=== PATIENT | female | born 1965 | race Hispanic/Latino ===

== ENCOUNTER → 2019-06-20 | Day surgery (SDC) | payer OTHER ==
[2019-06-16 16:54] LABS: BASOPHILS % 0.6 % (0.0-1.0); EOSINOPHILS # (AUTO) 0.2 (0.0-0.4); EOSINOPHILS % 2.4 % (0.0-6.0); HEMATOCRIT 35.4 % (34.2-44.1); HEMOGLOBIN 11.3 g/dL (12.0-16.0); LYMPHOCYTES # (AUTO) 1.9 (1.0-3.2); MEAN CORPUSCULAR HEMOGLOBIN 29.7 pg (28-32); MEAN CORPUSCULAR HGB CONC 31.9 g/dL (31-35); MEAN CORPUSCULAR VOLUME 92.9 fL (81-99); MONOCYTES # (AUTO) 0.5 (0.2-0.8); MONOCYTES % 7.1 % (4.4-11.3); NEUTROPHILS # (AUTO) 4.1 (2.1-6.9); NEUTROPHILS % 61.7 % (38.7-80.0); PLATELET COUNT 194 x10e3/uL (140-360); RED BLOOD COUNT 3.81 x10e6/uL (3.6-5.1); RED CELL DISTRIBUTION WIDTH 13.6 % (11.7-14.4)
[~2019-06-20] MED LIST: ASPIR 8181 MG PO; BIOTIN5 MG PO; CALCIUM PO; FENTANYL CITRATE/PF 100MCG/2 ML INJ ONE; FISH OIL 1,0001 EAC2 PO; GLYCOPYRROLATE INJ 0.2 MG/ML VIAL ONE; LEVOTHYROXINE75 MCG PO; LIDOCAINE HCL 2% LOCAL INJ 5 ML SDV VIAL INJ ONE; LOSARTAN POTASS25 MG PO; MIDAZOLAM HCL 2 MG/2 ML VIAL ONE; MULTIVITAMINS1 EAC7 PO; PROPOFOL IV EMULSION 10 MG/ML 20 ML VIAL ONE; VITAMIN B122500 MCG PO
[2019-06-20 12:30] VITALS: BP 126/66
== END | disposition home or self-care (01) ==
LOC: OR 08:24
PROVIDERS: ATTEND Internal Medicine Gastroenterology
DX: K31.7 Polyp of stomach and duodenum (principal); K29.70 Gastritis, unspecified, without bleeding; K21.9 Gastro-esophageal reflux disease without esophagitis; K28.9 Gastrojejunal ulcer, unspecified as acute or chronic, without hemorrhage or perforation; K44.9 Diaphragmatic hernia without obstruction or gangrene; Z98.84 Bariatric surgery status; R00.1 Bradycardia, unspecified; I10 Essential (primary) hypertension; I25.10 Atherosclerotic heart disease of native coronary artery without angina pectoris; E66.01 Morbid (severe) obesity due to excess calories; E03.9 Hypothyroidism, unspecified; R73.03 Prediabetes; Z01.812 Encounter for preprocedural laboratory examination; Z79.82 Long term (current) use of aspirin; Z68.41 Body mass index [BMI] 40.0-44.9, adult; Z85.43 Personal history of malignant neoplasm of ovary; Z85.828 Personal history of other malignant neoplasm of skin; Z80.0 Family history of malignant neoplasm of digestive organs
CPT/HCPCS: 36415; 43251; 85025; J2001; J2250; J2704; J3010; 43239

== ENCOUNTER → 2019-09-19 | Day surgery (SDC) | payer OTHER ==
[2019-09-15 08:36] LABS: BASOPHILS # (AUTO) 0.1 (0.0-0.1); BASOPHILS % 1.1 % (0.0-1.0); EOSINOPHILS # (AUTO) 0.1 (0.0-0.4); EOSINOPHILS % 2.3 % (0.0-6.0); HEMATOCRIT 36.6 % (34.2-44.1); HEMOGLOBIN 11.6 g/dL (12.0-16.0); LYMPHOCYTES # (AUTO) 1.5 (1.0-3.2); LYMPHOCYTES % 29.1 % (18.0-39.1); MEAN CORPUSCULAR HEMOGLOBIN 29.3 pg (28-32); MEAN CORPUSCULAR HGB CONC 31.7 g/dL (31-35); MEAN CORPUSCULAR VOLUME 92.4 fL (81-99); MONOCYTES # (AUTO) 0.4 (0.2-0.8); MONOCYTES % 6.6 % (4.4-11.3); NEUTROPHILS # (AUTO) 3.2 (2.1-6.9); NEUTROPHILS % 60.5 % (38.7-80.0); PLATELET COUNT 182 x10e3/uL (140-360); RED BLOOD COUNT 3.96 x10e6/uL (3.6-5.1); RED CELL DISTRIBUTION WIDTH 14.1 % (11.7-14.4)
[~2019-09-19] MED LIST changes: -FENTANYL CITRATE/PF 100MCG/2 ML INJ ONE; -GLYCOPYRROLATE INJ 0.2 MG/ML VIAL ONE
--- OUTSIDE RECORDS SUMMARY | 2019-09-19 08:02 | XMS REPORT | Continuity of Care Document ---
Author Author [employer], ELLA Berrios [facility] [place] Address Unknown Phone Unavailable Care Team Providers Care Lane Attendant Name Role Phone [facility] Information Exchange Unavailable Un available Problems Problem Status Onset Date Classification Date Reported Comments Source MORBID OBESITY Active 06/30/2017 [facility] M65.8=OTHER SYNOVITIS AND TENOSYNOVITIS, Active 10/28/2015 [facility] Medications Medication Details Route Status Patient Instructions Ordering Provider Order Date Source Ketorolac 4 days MEDICA TION WASTE Product Size: 30 mg Product Wasted: _0__ mg Inactive 09/21/2017 [facility] Ondansetron 4 mg, Route: IVP, Q6H, Dosing Weight 115.455, kg, PRN Nausea & Vomiting, Start date: 09/21/17 13:17:00 CDT, Duration: 30 day, Stop date: 10/21/17 13:16:00 CDT Inactive 09/21/2017 [facility] Promethazine 12.5 mg, Route: I M, Q4H, Dosing Weight 115.455, kg, PRN Nausea & Vomiting, Start date: 09/21/17 13:17:00 CDT, Duration: 30 day, Stop date: 10/21/17 13:16:00 CDT Inactive 09/21/2017 [facility] D5LR + KCL 20mEq/L 1000ml (Premix) 1,000 mL Notes: PREMIX IV - Do Not Alter WASTE: F/P - Sink; E - Municipal Trash Bin Inactive 09/21/2017 [facility] Dexamethasone Notes: Concentra tion: 4mg/ml Inactive 09/21/2017 [facility] Acetaminophen 21.7 MG/ML / Hydrocodone B itartrate 0.5 MG/ML Oral Solution Notes: Do not exceed 4gm/day of acetamin ophen. (Same as: [place] 325/7.5) Inactive 09/21/2017 [facility] heparin Notes: porcine heparin Inactive 09/21/2017 [facility] Aspirin 81 MG Enteric Coated Tablet 81 mg = 1 tab, PO, Daily Inactive 09/20/2017 [facility] levothyroxine 75 mcg (0.075 mg) oral tablet 75 microgram = 1 tab, PO, Daily Active 09/20/2017 [facility] losartan 50 mg oral tablet 50 mg = 1 tab, PO, Daily Active 09/20/2017 [facility] Cefoxitin Notes: (Same As: Mef oxin) MEDICATION WASTE Product Size: 2000 mg Product Wasted: ___ mg Inactive 09/20/2017 [facility] Hydromorphone Notes: (Same as: Dilaudid) conc = 0.5 mg/ml Hydromorphone [employer] Dose: ;Delay: ;Basal: No Longer Active 09/20/2017 [facility] Naloxone Notes: Same as Narcan No Longer Active 09/20/2017 [facility] Benadryl Notes: (Same as: [employer] dryl) No Longer Active 09/20/2017 [facility] D5W 1/2NS + KCL 20mEq/L 1000ml (Premix) 1,000 mL Notes: PREMIX IV - Do Not Alter WASTE: F/P - Sink; E - Municipal Trash Bin No Longer Active 09/20/2017 [facility] Ondansetron Notes: (Same as: Chitra palafox) MEDICATION WASTE Product Size: 4 mg Product Wasted: ___ mg No Longer Active 09/20/2017 [facility] Promethazine Notes: Do not giv e IV push. (Same as: Phenergan) No Longer Active 09/20/2017 [facility] Acetaminophen 21.7 MG/ML / Hydrocodone B itartrate 0.5 MG/ML Oral Solution Notes: Do not exceed 4gm/day of acetamin ophen. (Same as: [place] 325/7.5) No Longer Active 09/20/2017 [facility] neostigmine (ANES) Route: IV, Drug form: INJ, ONCE, Stop date: 09/20/17 9:47:00 CDT Inactive 09/20/2017 [facility] ondansetron (ANES) Route: IV, Drug form: INJ, ONCE, Stop date: 09/20/17 9:45:00 CDT Inactive 09/20/2017 [facility] Naloxone Notes: Same as Narcan Inactive 09/20/2017 [facility] Ondansetron Notes: (Same as: Chitra palafox) MEDICATION WASTE Product Size: 4 mg Product Wasted: ___ mg Inactive 09/20/2017 [facility] Flumazenil Notes: (Same as: Ro mazicon) Inactive 09/20/2017 [facility] Fentanyl Notes: (Same as: Subl imaze) Preservative free. Inactive 09/20/2017 [facility] Labetalol 10 mg, 2 mL, Route: IVP, Drug form: INJ, Q5Min, Dosing Weight 117.909, kg, PRN Elevated BP, Start date: 09/20/17 9:06:00 CDT, Duration: 5 doses or times, Stop date: 09/21/17 0:00:00 CDT Inactive 09/20/2017 [facility] Hydralazine Notes: (Same as: A presoline) Push over 5 minutes Inactive 09/20/2017 [facility] dexmedetomidine (ANES) + Sodium Chloride 0.9% IV (ANES) 98 mL Route: IV, Drug form: INJ, ONCE, Stop da te: 09/20/17 9:00:00 CDT Inactive 09/20/2017 [facility] ketAMINE (ANES) Route: IV, Rory g form: INJ, ONCE, Stop date: 09/20/17 8:55:00 CDT Inactive 09/20/2017 [facility] acetaminophen (ANES) 10 mg Rou te: IV, Drug form: INJ, Start date: 09/20/17 8:45:00 CDT, Stop date: 09/20/17 9:45:00 CDT Inactive 09/20/2017 [facility] metoclopramide (ANES) Route: I V, Drug form: INJ, ONCE, Stop date: 09/20/17 8:35:00 CDT Inactive 09/20/2017 [facility] famotidine (ANES) Route: IV, D rug form: INJ, ONCE, Stop date: 09/20/17 8:35:00 CDT Inactive 09/20/2017 [facility] cefOXitin (ANES) Route: IV, ug form: INJ, ONCE, Stop date: 09/20/17 8:35:00 CDT Inactive 09/20/2017 [facility] nt glycopyrrolate (ANES) Route: I V, Drug form: INJ, ONCE, Stop date: 09/20/17 8:30:00 CDT Inactive 09/20/2017 [facility] ePHEDrine (ANES) Route: IV, ug form: INJ, ONCE, Stop date: 09/20/17 8:30:00 CDT Inactive 09/20/2017 [facility] phenylephrine (ANES) Route: IV , Drug form: INJ, ONCE, Stop date: 09/20/17 8:30:00 CDT Inactive 09/20/2017 [facility] dexamethasone (ANES) Route: IV , Drug form: INJ, ONCE, Stop date: 09/20/17 8:30:00 CDT Inactive 09/20/2017 [facility] midazolam (ANES) Route: IV, ug form: SOLN, ONCE, Stop date: 09/20/17 8:25:00 CDT Inactive 09/20/2017 [facility] lidocaine (ANES) Route: IV, ug form: INJ, ONCE, Stop date: 09/20/17 8:25:00 CDT Inactive 09/20/2017 [facility] propofol (ANES) Route: IV, Rory g form: INJ, ONCE, Stop date: 09/20/17 8:25:00 CDT Inactive 09/20/2017 [facility] rocuronium (ANES) Route: IV, D rug form: INJ, ONCE, Stop date: 09/20/17 8:25:00 CDT Inactive 09/20/2017 [facility] fentaNYL (ANES) Route: IV, Rory g form: INJ, ONCE, Stop date: 09/20/17 8:25:00 CDT Inactive 09/20/2017 [facility] ropivacaine 0.2% 540 mg + Q-Pump 1 ea Notes: Preservative free. (Same as: Naropin) No Longer Active 09/20/2017 [facility] propofol (ANES) 10 mg Route: I V, Drug form: INJ, Start date: 09/20/17 7:46:00 CDT, Stop date: 09/20/17 8:46:00 CDT Inactive 09/20/2017 [facility] Sodium Chloride 0.9% IV (ANES) 98 mL + d exmedetomidine (ANES) 200 microgram Route: IV, Drug form: INJ, Start date: 0 09/20/17 7:46:00 CDT, Stop date: 09/20/17 8:46:00 CDT Inactive 09/20/2017 [facility] Lactated Ringers Injection IV (ANES) 1000 mL Route: IV, Total Volume: 1,000, Start date: 09/20/17 7:33:00 CDT, Stop date: 09/20/17 8:33:00 CDT Inactive 09/20/2017 [facility] CeleBREX Notes: NSAID. Please check indication. Not for seizure. (Same As: CeleBREX) Inactive 09/20/2017 [facility] Emend Notes: Same as: Emend re stricted to the Hematology/Oncology service for high and moderate emetogenic regimen according to ASCO Guidelines Passthrough Only for Chemotherapy-Induced nausea & vomitin g Inactive 09/20/2017 [facility] Neurontin Notes: (Same as: Lauren rontin) Inactive 09/20/2017 [facility] Ofirmev Notes: Infuse over 15 minutes Do not exceed 4gm/day of acetaminophen MEDICATION WASTE Product Size: 1000 mg Product Wasted: ___ mg No Longer Active 09/20/2017 [facility] Mefoxin + sterile water 20 mL Notes: (Same As: Mefoxin) MEDICATION WASTE Product Size: 2000 mg Product Wasted: ___ mg No Longer Active 09/20/2017 [facility] scopolamine Notes: Change patc h every 72 hours (Same as: Transderm-Scop) No Longer Active 09/20/2017 [facility] heparin Notes: porcine heparin No Longer Active 09/20/2017 [facility] remove patch Notes: Remove old patch before application of new patch. No Longer Active 09/20/2017 [facility] Vitamin D3 1200 IU, PO, Daily Active 09/17/2017 [facility] Aspirin 81 mg, PO, Daily No Longer Active 09/17/2017 [facility] Fish Oil 1,200 mg, PO, Daily Active 09/17/2017 [facility] Thyroxine 75 microgram, PO, Da bola No Longer Active 09/17/2017 [facility] Losartan 50 mg, PO, BID No Longer Active 09/17/2017 [facility] Allergies, Adverse Reactions, Alerts No Known Medication Allergies Immunizations No Data Provided for This Section Results Order Name Results Value Reference Range Date Interpretation Comments Source CHEM PANEL Magnesium Lvl 2.3 1.8 - 2.4 09/21/2017 [facility] CHEM PANEL Phosphorus 2.5 2.5 - 4.5 09/21/2017 [facility] CHEM PANEL eGFR 115 09/21/2017 Result Comment: The eGFR is calculated using the CKD-EPI formula. In most young, healthy individuals the eGFR will be >90 mL/min/1.73m2. The eGFR declines with age. An eGFR of 60-89 may be normal in some populations, particularly the elderly, for whom the CKD-EPI formula has not been extensively validated. Use of the eGFR is not recommended in the following populations:

Individuals with unstable creatinine concentrations, including patients and those with serious co-morbid conditions.

Patients with extremes in muscle mass or diet.

The data above are obtained from the National Kidney Disease Education Program (NKDEP) which additionally recommends that when the eGFR is used in patients with extremes of body mass index for purposes of drug dosing, the eGFR should be multiplied by the estimated BMI. [facility] CHEM PANEL CO2 25 24 - 32 09/21/2017 [facility] CHEM PANEL Sodium Lvl 138 135 - 145 09/21/2017 [facility] CHEM PANEL Creatinine Lvl 0.48 0.50 - 1.40 09/21/2017 [facility] CHEM PANEL Calcium Lvl 8.6 8.5 - 10.5 09/21/2017 [facility] CHEM PANEL Chloride Lvl 104 95 - 109 09/21/2017 [facility] CHEM PANEL Potassium Lvl 4.1 3.5 - 5.1 09/21/2017 [facility] CHEM PANEL BUN 9 7 - 22 09/21/2017 [facility] CHEM PANEL Glucose Lvl 125 70 - 99 09/21/2017 [facility] CHEM PANEL AGAP 13.1 10.0 - 20.0 09/21/2017 [facility] HEMATOLOGY Segs 82.8 45.0 - 75.0 09/21/2017 [facility] HEMATOLOGY Monocytes # 0.7 0.0 - 0.8 09/21/2017 [facility] HEMATOLOGY Segs-Bands # 8.8 1.5 - 8.1 09/21/2017 [facility] HEMATOLOGY Lymphocytes # 1.1 1.0 - 5.5 09/21/2017 [facility] HEMATOLOGY Basophils 0.1 0.0 - 1.0 09/21/2017 [facility] HEMATOLOGY Eosinophils 0.1 0.0 - 4.0 09/21/2017 [facility] HEMATOLOGY Monocytes 6.4 2.0 - 12.0 09/21/2017 [facility] HEMATOLOGY Lymphocytes 10.6 20.0 - 40.0 09/21/2017 [facility] HEMATOLOGY INR 1.13 0.85 - 1.17 09/21/2017 [facility] HEMATOLOGY PT 14.5 12.0 - 14.7 09/21/2017 [facility] HEMATOLOGY MPV 9.9 7.4 - 10.4 09/21/2017 [facility] HEMATOLOGY Platelet 185 133 - 450 09/21/2017 [facility] HEMATOLOGY RDW 14.9 11.5 - 14.5 09/21/2017 [facility] HEMATOLOGY MCH 30.3 27.0 - 31.0 09/21/2017 [facility] HEMATOLOGY MCHC 34.2 32.0 - 36.0 09/21/2017 [facility] HEMATOLOGY Hct 33.3 36.0 - 48.0 09/21/2017 [facility] HEMATOLOGY MCV 88.4 80.0 - 98.0 09/21/2017 [facility] HEMATOLOGY Hgb 11.4 12.0 - 16.0 09/21/2017 [facility] HEMATOLOGY RBC 3.77 4.20 - 5.40 09/21/2017 [facility] HEMATOLOGY WBC 10.7 3.7 - 10.4 09/21/2017 [facility] HEMATOLOGY PTT 30.7 22.9 - 35.8 09/21/2017 [facility] BLOOD BANK RESULTS Antibody Scrn Negative (09/20/17 6:39 AM) 09/20/2017 [facility] BLOOD BANK RESULTS ABO/Rh O POS 09/20/2017 [facility] URINE AND STOOL UA Blood Negative (09/20/17 6:19 AM) Negative 09/20/2017 [facility] URINE AND STOOL UA Nitrite Negative (09/20/17 6:19 AM) Negative 09/20/2017 [facility] URINE AND STOOL UA Urobilinogen 2.0 0.1 - 1.0 09/20/2017 [facility] URINE AND STOOL UA Sq Epi Few /LPF Few /LPF 09/20/2017 [facility] URINE AND STOOL UA Leuk Est Negative (09/20/17 6:19 AM) Negative 09/20/2017 [facility] URINE AND STOOL UA Hyal Cast 1 0 - 2 09/20/2017 [facility] URINE AND STOOL UA Mucus Few /LPF None Seen /LPF 09/20/2017 [facility] URINE AND STOOL UA Bacteria Occasional /HPF None Seen /HPF 09/20/2017 [facility] URINE AND STOOL UA WBC 1 0 - 5 09/20/2017 [facility] URINE AND STOOL UA Color Yellow *NA* (09/20/17 6:19 AM) Yellow 09/20/2017 [facility] URINE AND STOOL UA Turbidity Clear (09/20/17 6:19 AM) Clear 09/20/2017 [facility] URINE AND STOOL UA Spec Grav 1.013 <=1.030 09/20/2017 [facility] URINE AND STOOL UA pH 5.5 5.0 - 8.0 09/20/2017 [facility] URINE AND STOOL UA Protein Negative mg/dL Negative mg/dL 09/20/2017 [facility] URINE AND STOOL UA Glucose Negative mg/dL Negative mg/dL 09/20/2017 [facility] URINE AND STOOL UA Ketones 60 mg/dL Negative mg/dL 09/20/2017 [facility] URINE AND STOOL UA Bili Negative *NA* (09/20/17 6:19 AM) Negative 09/20/2017 [facility] HEMATOLOGY PTT 33.0 22.9 - 35.8 09/17/2017 [facility] HEMATOLOGY INR 1.14 0.85 - 1.17 09/17/2017 [facility] HEMATOLOGY PT 14.6 12.0 - 14.7 09/17/2017 [facility] URINE AND STOOL UA Renal Epi RARE <=0 09/17/2017 [facility] URINE AND STOOL UA Urobilinogen <=1.0 mg/dL 0.1 - 1.0 09/17/2017 [facility] URINE AND STOOL UA Bili Negative *NA* (09/17/17 8:45 AM) Negative 09/17/2017 [facility] URINE AND STOOL UA RBC 1 0 - 2 09/17/2017 [facility] URINE AND STOOL UA Sq Epi Moderate /LPF Few /LPF 09/17/2017 [facility] URINE AND STOOL UA Leuk Est Negative (09/17/17 8:45 AM) Negative 09/17/2017 [facility] URINE AND STOOL UA WBC 4 0 - 5 09/17/2017 [facility] URINE AND STOOL UA Mucus Few /LPF None Seen /LPF 09/17/2017 [facility] URINE AND STOOL UA Bacteria Many /HPF None Seen /HPF 09/17/2017 [facility] URINE AND STOOL UA Hyal Cast 3 0 - 2 09/17/2017 [facility] URINE AND STOOL UA Blood Negative (09/17/17 8:45 AM) Negative 09/17/2017 [facility] URINE AND STOOL UA Nitrite Positive *ABN* (09/17/17 8:45 AM) Negative 09/17/2017 [facility] URINE AND STOOL UA Ketones 80 mg/dL Negative mg/dL 09/17/2017 [facility] URINE AND STOOL UA Color Yellow *NA* (09/17/17 8:45 AM) Yellow 09/17/2017 [facility] URINE AND STOOL UA Turbidity Slight *ABN* (09/17/17 8:45 AM) Clear 09/17/2017 [facility] URINE AND STOOL UA Glucose Negative mg/dL Negative mg/dL 09/17/2017 [facility] URINE AND STOOL UA Protein 10 mg/dL Negative mg/dL 09/17/2017 [facility] URINE AND STOOL UA Spec Grav 1.015 <=1.030 09/17/2017 [facility] URINE AND STOOL UA pH 5.5 5.0 - 8.0 09/17/2017 [facility] Pathology Reports No Data Provided for This Section Diagnostic Reports Report Value Date Source Ankle wo contrast MRI MRI RIGH T ANKLE WITHOUT CONTRAST HISTORY: Other synovitis and tenosynovitis right ankle and foot, 50-year-old female reports right ankle and foot pain, mechanical symptoms, and stiffness for approximately one month which may be related to twisting injury of the foot, painful range of motion COMPARISON: None available. FINDINGS: Anterior talofibular ligament, calcaneofibular ligament, and posterior talofibular ligament are intact. Medial deltoid ligament complex is intact. The anterior and posterior distal tibiofibular syndesmotic ligaments are intact. Relatively small degenerative subcortical cyst with associated sclerosis in the medial talar dome posteriorly measures 7 x 6 x 4 mm. There is moderate reactive arthropathic marrow edema in the medial tibial plafond and base of the medial malleolus adjacently. Mild excess fluid in the common peroneal tendon sheath compatible with mild tenosynovitis. Moderate focal tendinopathy of the peroneus brevis tendon at the lateral malleolus. Mild posterior tibial tenosynovitis in the tarsal tunnel of the medial hindfoot without posterior tibial tendinopathy or tendon tear. Mild abnormal signal in the distal Achilles tendon without tendon thickening compatible with mild Achilles tendinopathy. No Achilles tendon tear. Mild/moderate degenerative arthritic changes are seen at the tarsometatarsal articulations diffusely. Moderate degenerative arthritic change is noted at the dorsal aspect of the naviculocuneiform articulations. Multiloculated soft tissue ganglion cyst along the lateral aspect of the neck of the talus measures 5 x 11 x 12 mm. Superficial soft tissue edema/inflammation at the medial and lateral malleolus, greater laterally. No fracture or aggressive osseous lesion. No osseous malalignment. No ankle or subtalar joint effusion. Normal plantar fascia. IMPRESSION: 1. A 7 mm degenerative subarticular cys t in the medial talar dome posteriorly with moderate associated reactive arthropathic marrow edema in the adjacent medial tibial plafond and base of the medial malleolus. 2. Mild common peroneal tenosynovitis wi th focal tendinopathy of the peroneal brevis tendon at the lateral malleolus. 3. Mild posterior tibial tenosynovitis i n the tarsal tunnel without tendinopathy or tendon tear. 4. Mild distal Achilles tendinopathy. 5. 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 6. Multiloculated soft tissue ganglion c yst along the lateral aspect of the neck of the talus. 7. Superficial soft tissue edema/inflamm ation at the medial and lateral malleolus, greater laterally. SL: [id number] 10/29/2015 [facility] Consultation Notes No Data Provided for This Section Discharge Summaries No Data Provided for This Section History and Physicals No Data Provided for This Section Vital Signs Vital Sign Value Date Comments Source Respitory Rate 18 09/21/2017 [facility] Systolic (mm Hg) 112 09/21/2017 [facility] Diastolic (mm Hg) 71 09/21/2017 [facility] Heart Rate 56 09/21/2017 [facility] Temperature Oral (F) 98.5 F 09/21/2017 [facility] Heart Rate 62 09/21/2017 [facility] Respitory Rate 18 09/21/2017 [facility] Temperature Oral (F) 98.1 F 09/21/2017 [facility] Systolic (mm Hg) 118 09/21/2017 [facility] Diastolic (mm Hg) 71 09/21/2017 [facility] Temperature Oral (F) 98.4 F 09/21/2017 [facility] Systolic (mm Hg) 130 09/21/2017 [facility] Diastolic (mm Hg) 84 09/21/2017 [facility] Respitory Rate 18 09/21/2017 [facility] Heart Rate 68 09/21/2017 [facility] BMI Calculated 57.06 09/20/2017 [facility] Height 142.24 cm 09/20/2017 [facility] Weight 115.455 09/20/2017 [facility] Weight 117.909 09/20/2017 [facility] BMI Calculated 58.28 09/20/2017 [facility] Height 142.24 cm 09/17/2017 [facility] Encounters Location Location Details Encounter Type Encounter Number Reason For Visit Attending Provider ADM Date DC Date Status Source [facility] Outpatient [id number] Non Physician 10/29/2015 10/30/2015 [facility] Inpatient [id number] Pierre CabezasGibran 09/20/2017 09/21/2017 [facility] Procedures Procedure Code Date Perfomer Comments Source Esophagogastroduodenoscopy [id number] 09/20/2017 [facility] Hernia repair<sup>1</sup> 5046 [id number] 09/20/2017 ventral hernia repair [facility] Laparoscopic sleeve gastrectomy [id number] 09/20/2017 [facility] Appendectomy [id number] [facility] section [id number] [facility] Cholecystectomy [id number] [facility] Hernia repair<sup>2</sup> 5046 5008 hiatal her rosana repair [facility] ABIGAIL - Total abdominal hysterectomy [id number] [facility] Assessment and Plan Assessment and Plan Date Source Extracted from:Title: surgery Author: Pierre Leary MD Date: 09/21/17 Impression and Plan Doing fine. Discharge home with f/u in 2 weeks. 09/21/2017 [facility] Plan of Care No Data Provided for This Section Social History Social History Date Source Social History TypeResponse Alcohol Never Smoking Status Never smoker; Exposure to Tobacco Smoke None; Cigarette Smoking Last 365 Days No; Reg Smoking Cessation Counseling No entered on: 09/20/17 09/20/2017 [facility] No data available for this section 10/30/2015 [facility] Family History No Data Provided for This Section Advance Directives No Data Provided for This Section Functional Status No Data Provided for This Section
--- OUTSIDE RECORDS SUMMARY | 2019-09-19 08:02 | XMS REPORT | Summary of Care ---
Author Author [facility] Organization [facility] Address Unknown Phone Unavailable Encounter NIKI Morel(NICHOLE) [id number] Date(s): 09/20/17 - 09/21/17 [facility] [address] [employer] provided by [employer] [place] [address]- Discharge Disposition: Home or Self Care Attending Physician: Pierre Leary MD Admitting Physician: Pierre Leary MD Referring Physician: Pierre Leary MD Vital Signs 1 2 3 Most recent to oldest [Reference Range]: 142.24 cm (09/20/17 12:23 PM) 142.24 cm (09/17/17 3:00 PM) Height 98.5 DegF (09/21/17 6:03 PM) 98.1 DegF (09/21/17 12:06 PM) 98.4 DegF (09/21/17 8:00 AM) Temperature Oral [96.4-99.1 DegF] 112/71 mmHg (09/21/17 6:03 PM) 118/71 mmHg (09/21/17 12:06 PM) 130/84 mmHg (09/21/17 8:00 AM) Blood Pressure [90-140/60-90 mmHg] 18 BRMIN (09/21/17 6:03 PM) 18 BRMIN (09/21/17 12:06 PM) 18 BRMIN (09/21/17 8:00 AM) Respiratory Rate [14-20 BRMIN] 56 bpm *LOW* (09/21/17 6:03 PM) 62 bpm (09/21/17 12:06 PM) 68 bpm (09/21/17 8:00 AM) Peripheral Pulse Rate [60-100 bpm] 115.455 kg (09/20/17 12:23 PM) 117.909 kg (09/20/17 6:02 AM) Weight 57.06 m2 (09/20/17 12:23 PM) 58.28 m2 (09/20/17 6:02 AM) Body Mass Index Problem List No data available for this section Allergies, Adverse Reactions, Alerts Substance Reaction Severity Status NKDA Active Medications acetaminophen (ANES) 10 mg Route: IV, Drug form: INJ, Start date: 09/20/17 8:45:00 CDT, Stop date: 09/20/17 9:45:00 CDT Start Date: 09/20/17 Stop Date: 09/20/17 Status: Completed acetaminophen-hydrocodone 325 mg-7.5 mg/15 mL oral solution 15 mL, Route: PO, Drug Form: SOLN, Dosing Weight 117.909, kg, Q4H, PRN Pain Scor e 4-6, Start date: 09/20/17 10:03:00 CDT, Duration: 30 day, Stop date: 10/20/17 10:02:00 CDT Notes: Do not exceed 4gm/day of acetaminophen. (Same as: [place] 325/7.5) Start Date: 09/20/17 Stop Date: 09/21/17 Status: Deleted acetaminophen-hydrocodone 325 mg-7.5 mg/15 mL oral solution 15 mL, Route: PO, Drug Form: SOLN, Dosing Weight 115.455, kg, Q6H, PRN Pain Scor e 4-6, Start date: 09/21/17 13:17:00 CDT, Duration: 30 day, Stop date: 10/21/17 13:16:00 CDT Notes: Do not exceed 4gm/day of acetaminophen. (Same as: [place] 325/7.5) Start Date: 09/21/17 Stop Date: 09/21/17 Status: Discontinued ANES fentaNYL 25 microgram, 0.5 mL, Route: IVP, Drug form: INJ, Q5Min, Dosing Weight 117.909, kg, PRN Pain Score 4-6, Priority: Routine, Start date: 09/20/17 9:06:00 CDT, Dur ation: 4 doses or times, Stop date: 09/21/17 0:00:00 CDT Notes: (Same as: Sublimaze) Preservative free. Start Date: 09/20/17 Stop Date: 09/20/17 Status: Discontinued ANES flumazenil 0.2 mg, 2 mL, Route: IVP, Drug form: INJ, PRN, Dosing Weight 117.909, kg, PRN Be nzodiazepine Reversal, Initial dose, Start date: 09/20/17 9:06:00 CDT, Duration: 30 day, Stop date: 10/20/17 9:05:00 CDT Notes: (Same as: Romazicon) Start Date: 09/20/17 Stop Date: 09/20/17 Status: Discontinued ANES hydrALAZINE 10 mg, 0.5 mL, Route: IVP, Drug form: INJ, Q20Min, Dosing Weight 117.909, kg, WV N Elevated BP, Start date: 09/20/17 9:06:00 CDT, Duration: 2 doses or times, Sto p date: 09/21/17 0:00:00 CDT Notes: (Same as: Apresoline)Push over 5 minutes Start Date: 09/20/17 Stop Date: 09/20/17 Status: Discontinued ANES labetalol 10 mg, 2 mL, Route: IVP, Drug form: INJ, Q5Min, Dosing Weight 117.909, kg, PRN E levated BP, Start date: 09/20/17 9:06:00 CDT, Duration: 5 doses or times, Stop d ate: 09/21/17 0:00:00 CDT Start Date: 09/20/17 Stop Date: 09/20/17 Status: Discontinued ANES naloxone 0.4 mg, 1 mL, Route: IVP, Drug form: INJ, Q2MIN, Dosing Weight 117.909, kg, PRN Narcotic Reversal, Start date: 09/20/17 9:06:00 CDT, Duration: 8 doses or times, Stop date: 09/21/17 0:00:00 CDT Notes: Same as Narcan Start Date: 09/20/17 Stop Date: 09/20/17 Status: Discontinued ANES ondansetron 4 mg, 2 mL, Route: IVP, Drug form: INJ, ONCE, Dosing Weight 117.909, kg, PRN Wolf sea & Vomiting, Start date: 09/20/17 9:06:00 CDT Notes: (Same as: Zofran) MEDICATION WASTE Product Size: 4 mgProduct Was bibi: ___ mg Start Date: 09/20/17 Stop Date: 09/20/17 Status: Discontinued aspirin 81 mg, PO, Daily Start Date: 09/17/17 Stop Date: 09/20/17 Status: Completed aspirin 81 mg tablet, enteric coated 81 mg = 1 tab, PO, Daily Start Date: 09/20/17 Stop Date: 09/20/17 Status: Completed aspirin 81 mg tablet, enteric coated 81 mg = 1 tab, PO, Daily Start Date: 09/20/17 Status: Ordered Benadryl 25 mg, 0.5 mL, Route: IV, Drug form: INJ, QID, Dosing Weight 117.909, kg, PRN as needed for itching, Start date: 09/20/17 10:03:00 CDT, Duration: 30 day, Stop d ate: 10/20/17 10:02:00 CDT Notes: (Same as: Benadryl) Start Date: 09/20/17 Stop Date: 09/21/17 Status: Discontinued cefOXitin (ANES) Route: IV, Drug form: INJ, ONCE, Stop date: 09/20/17 8:35:00 CDT Start Date: 09/20/17 Stop Date: 09/20/17 Status: Completed cefOXitin (SCIP) 2 gm, Route: IVPB, Drug form: INJ, Q6H, Dosing Weight 117.909, kg, Start date: 0 09/20/17 12:00:00 CDT, Duration: 1 doses or times, Stop date: 09/20/17 12:00:00 C DT, ABX Indication: Surgical Prophylaxis Notes: (Same As: Mefoxin) MEDICATION WASTE Product Size: 2000 mgProduct Wasted: ___ mg Start Date: 09/20/17 Stop Date: 09/20/17 Status: Completed CeleBREX 400 mg, 2 cap, Route: PO, Drug form: CAP, PRE OP, Start date: 09/20/17 7:00:00 C DT, Duration: 1 day, Stop date: 09/21/17 6:59:00 CDT Notes: NSAID. Please check indication. Not for seizure. (Same As: CeleBREX) Start Date: 09/20/17 Stop Date: 09/20/17 Status: Completed D5LR + KCL 20mEq/L 1000ml (Premix) 1,000 mL 1,000 mL, Rate: 80 ml/hr, Infuse over: 12.5 hr, Route: IV, Dosing Weight 115.455 kg, Total Volume: 1,000, Start date: 09/21/17 13:17:00 CDT, Duration: 30 day, S top date: 10/21/17 13:16:00 CDT, 2.2, m2 Notes: PREMIX IV - Do Not AlterWASTE: F/P - Sink; E - Municipal Trash Bin Start Date: 09/21/17 Stop Date: 09/21/17 Status: Discontinued D5W 1/2NS + KCL 20mEq/L 1000ml (Premix) 1,000 mL 1,000 mL, Rate: 125 ml/hr, Infuse over: 8 hr, Route: IV, Dosing Weight 117.909 k g, Total Volume: 1,000, Start date: 09/20/17 10:03:00 CDT, Duration: 30 day, Sto p date: 10/20/17 10:02:00 CDT, 2.22, m2 Notes: PREMIX IV - Do Not AlterWASTE: F/P - Sink; E - Municipal Trash Bin Start Date: 09/20/17 Stop Date: 09/21/17 Status: Discontinued dexamethasone 4 mg, 1 mL, Route: IVP, Drug form: INJ, Q6H, Dosing Weight 115.455, kg, PRN [place] cody, Start date: 09/21/17 13:17:00 CDT, Duration: 30 day, Stop date: 10/21/17 13: 16:00 CDT Notes: Concentration: 4mg/ml Start Date: 09/21/17 Stop Date: 09/21/17 Status: Discontinued dexamethasone (ANES) Route: IV, Drug form: INJ, ONCE, Stop date: 09/20/17 8:30:00 CDT Start Date: 09/20/17 Stop Date: 09/20/17 Status: Completed dexmedetomidine (ANES) + Sodium Chloride 0.9% IV (ANES) 98 mL Route: IV, Drug form: INJ, ONCE, Stop date: 09/20/17 9:00:00 CDT Start Date: 09/20/17 Stop Date: 09/20/17 Status: Completed Emend 40 mg, 1 cap, Route: PO, Drug form: CAP, PRE OP, Start date: 09/20/17 7:00:00 CD T, Duration: 1 day, Stop date: 09/21/17 6:59:00 CDT Notes: Same as: Emendrestricted to the Hematology/Oncology service for high and moderate emetogenic regimen according to ASCO Guidelines PassthroughOnly for Ch emotherapy-Induced nausea & vomiting Start Date: 09/20/17 Stop Date: 09/20/17 Status: Completed ePHEDrine (ANES) Route: IV, Drug form: INJ, ONCE, Stop date: 09/20/17 8:30:00 CDT Start Date: 09/20/17 Stop Date: 09/20/17 Status: Completed famotidine (ANES) Route: IV, Drug form: INJ, ONCE, Stop date: 09/20/17 8:35:00 CDT Start Date: 09/20/17 Stop Date: 09/20/17 Status: Completed fentaNYL (ANES) Route: IV, Drug form: INJ, ONCE, Stop date: 09/20/17 8:25:00 CDT Start Date: 09/20/17 Stop Date: 09/20/17 Status: Completed Fish Oil 1,200 mg, PO, Daily Start Date: 09/17/17 Status: Ordered glycopyrrolate (ANES) Route: IV, Drug form: INJ, ONCE, Stop date: 09/20/17 8:30:00 CDT Start Date: 09/20/17 Stop Date: 09/20/17 Status: Completed heparin 5,000 unit, 1 mL, Route: SUB-Q, Drug form: INJ, PRE OP, Start date: 09/19/17 22: 00:00 CDT, Duration: 1 day, Stop date: 09/20/17 21:59:00 CDT Notes: porcine heparin Start Date: 09/19/17 Stop Date: 09/20/17 Status: Completed heparin 5,000 unit, 1 mL, Route: SUB-Q, Drug form: INJ, Q8H, Dosing Weight 117.909, kg, Start date: 09/21/17 0:00:00 CDT, Duration: 30 day, Stop date: 10/20/17 16:00:00 CDT Notes: porcine heparin Start Date: 09/21/17 Stop Date: 09/21/17 Status: Discontinued HYDROmorphone 0.5mg/mL RETAIL CLERK (15mg/30 mL) 15 mg 15 mg, 30 mL, Route: IV, Initial Loading Dose: 0.4mg, RETAIL CLERK Dose: 0.2 mg, RETAIL CLERK Lock out: 10 minutes, Continuous Basal Rate: 0 mg, 4 Hour Limit (In MG): 4.8, Drug Fo rm: INJ, Continuous, Start date: 09/20/17 10:03:00 CDT, Duration: 30 day, Stop d ate: ... Notes: (Same as: Dilaudid) conc = 0.5 mg/mlHydromorphone RETAIL CLERK Dose: ;Pat y: ;Basal: Start Date: 09/20/17 Stop Date: 09/21/17 Status: Discontinued ketAMINE (ANES) Route: IV, Drug form: INJ, ONCE, Stop date: 09/20/17 8:55:00 CDT Start Date: 09/20/17 Stop Date: 09/20/17 Status: Completed ketOROLAC 30 mg, 1 mL, Route: IVP, Drug form: INJ, Q6H, Dosing Weight 115.455, kg, PRN Smith n Score 6-10, Start date: 09/21/17 13:17:00 CDT, Duration: 6 doses or times, Sto p date: Limited # of times Notes: (Same as:Toradol) IV bolus must be given >15 seconds. Give IM administration slowly and deeply into the muscle.Not for use > 4 days MEDICATION WASTE Product Size: 30 mgProduct Wasted: _0__ mg Start Date: 09/21/17 Stop Date: 09/21/17 Status: Discontinued Lactated Ringers Injection IV (ANES) 1000 mL Route: IV, Total Volume: 1,000, Start date: 09/20/17 7:33:00 CDT, Stop date: 8:33:00 CDT Start Date: 09/20/17 Stop Date: 09/20/17 Status: Completed levothyroxine 75 microgram, PO, Daily Start Date: 09/17/17 Stop Date: 09/20/17 Status: Completed levothyroxine 75 mcg (0.075 mg) oral tablet 75 microgram = 1 tab, PO, Daily Start Date: 09/20/17 Status: Ordered lidocaine (ANES) Route: IV, Drug form: INJ, ONCE, Stop date: 09/20/17 8:25:00 CDT Start Date: 09/20/17 Stop Date: 09/20/17 Status: Completed losartan 50 mg, PO, BID Start Date: 09/17/17 Stop Date: 09/20/17 Status: Completed losartan 50 mg oral tablet 50 mg = 1 tab, PO, Daily Start Date: 09/20/17 Status: Ordered Mefoxin + sterile water 20 mL 2 gm, Route: IV, PRE OP, Start date: 09/19/17 22:00:00 CDT, Duration: 1 day, Sto p date: 09/20/17 21:59:00 CDT, ABX Indication: Surgical Prophylaxis Notes: (Same As: Mefoxin) MEDICATION WASTE Product Size: 2000 mgProduct Wasted: ___ mg Start Date: 09/19/17 Stop Date: 09/21/17 Status: Discontinued metoclopramide (ANES) Route: IV, Drug form: INJ, ONCE, Stop date: 09/20/17 8:35:00 CDT Start Date: 09/20/17 Stop Date: 09/20/17 Status: Completed midazolam (ANES) Route: IV, Drug form: SOLN, ONCE, Stop date: 09/20/17 8:25:00 CDT Start Date: 09/20/17 Stop Date: 09/20/17 Status: Completed naloxone 0.04 mg, 0.1 mL, Route: IVP, Drug form: INJ, Q2MIN, Dosing Weight 117.909, kg, P RN Narcotic Reversal, Start date: 09/20/17 10:03:00 CDT, Duration: 30 day, Stop date: 10/20/17 10:02:00 CDT Notes: Same as Narcan Start Date: 09/20/17 Stop Date: 09/21/17 Status: Discontinued neostigmine (ANES) Route: IV, Drug form: INJ, ONCE, Stop date: 09/20/17 9:47:00 CDT Start Date: 09/20/17 Stop Date: 09/20/17 Status: Completed Neurontin 300 mg, 1 cap, Route: PO, Drug form: CAP, PRE OP, Start date: 09/20/17 7:00:00 C DT, Duration: 1 day, Stop date: 09/21/17 6:59:00 CDT Notes: (Same as: Neurontin) Start Date: 09/20/17 Stop Date: 09/20/17 Status: Completed Ofirmev 1 gm, 100 mL, Route: IV, Drug form: INJ, PRE OP, Start date: 09/19/17 22:00:00 C DT, Duration: 1 day, Stop date: 09/20/17 21:59:00 CDT Notes: Infuse over 15 minutesDo not exceed 4gm/day of acetaminophen MEDICAT ION WASTE Product Size: 1000 mgProduct Wasted: ___ mg Start Date: 09/19/17 Stop Date: 09/21/17 Status: Discontinued ondansetron 4 mg, Route: IVP, Q6H, Dosing Weight 115.455, kg, PRN Nausea & Vomiting, Start date: 09/21/17 13:17:00 CDT, Duration: 30 day, Stop date: 10/21/17 13:16:00 CDT Start Date: 09/21/17 Stop Date: 09/21/17 Status: Deleted ondansetron 4 mg, 2 mL, Route: IVP, Drug form: INJ, Q6H, Dosing Weight 117.909, kg, PRN Naus ea & Vomiting, Start date: 09/20/17 10:03:00 CDT, Duration: 30 day, Stop date: 10/20/17 10:02:00 CDT Notes: (Same as: Zofran) MEDICATION WASTE Product Size: 4 mgProduct Was bibi: ___ mg Start Date: 09/20/17 Stop Date: 09/21/17 Status: Discontinued ondansetron (ANES) Route: IV, Drug form: INJ, ONCE, Stop date: 09/20/17 9:45:00 CDT Start Date: 09/20/17 Stop Date: 09/20/17 Status: Completed phenylephrine (ANES) Route: IV, Drug form: INJ, ONCE, Stop date: 09/20/17 8:30:00 CDT Start Date: 09/20/17 Stop Date: 09/20/17 Status: Completed promethazine 12.5 mg, Route: IM, Q4H, Dosing Weight 115.455, kg, PRN Nausea & Vomiting, Start date: 09/21/17 13:17:00 CDT, Duration: 30 day, Stop date: 10/21/17 13:16:00 CDT Start Date: 09/21/17 Stop Date: 09/21/17 Status: Deleted promethazine 12.5 mg, 0.5 mL, Route: IM, Drug form: INJ, Q4H, Dosing Weight 117.909, kg, PRN Nausea & Vomiting, Start date: 09/20/17 10:03:00 CDT, Duration: 30 day, Stop date: 10/20/17 10:02:00 CDT Notes: Do not give IV push. (Same as: Phenergan) Start Date: 09/20/17 Stop Date: 09/21/17 Status: Discontinued propofol (ANES) Route: IV, Drug form: INJ, ONCE, Stop date: 09/20/17 8:25:00 CDT Start Date: 09/20/17 Stop Date: 09/20/17 Status: Completed propofol (ANES) 10 mg Route: IV, Drug form: INJ, Start date: 09/20/17 7:46:00 CDT, Stop date: 09/20/17 8:46:00 CDT Start Date: 09/20/17 Stop Date: 09/20/17 Status: Completed remove patch 1 patch, Route: TOP, Drug form: ERFILM, ONCALL, Start date: 09/19/17 22:00:00 CD T, Duration: 30 day, Stop date: 10/19/17 21:59:00 CDT Notes: Remove old patch before application of new patch. Start Date: 09/19/17 Stop Date: 09/21/17 Status: Discontinued rocuronium (ANES) Route: IV, Drug form: INJ, ONCE, Stop date: 09/20/17 8:25:00 CDT Start Date: 09/20/17 Stop Date: 09/20/17 Status: Completed ropivacaine 0.2% 540 mg + Q-Pump 1 ea 540 mg, 270 mL, 4 ml/hr, Route: NERVE BLOCK, Drug Form: INJ, Dosing Weight 117.9 09, kg, Start date: 09/20/17 8:05:00 CDT, Duration: 1 day, Stop date: 09/21/17 8 :04:00 CDT Notes: Preservative free. (Same as: Naropin) Start Date: 09/20/17 Stop Date: 09/21/17 Status: Completed scopolamine 1 patch, Route: TOP, Drug form: ERFILM, PRE OP, Start date: 09/19/17 22:00:00 CD T, Duration: 1 day, Stop date: 09/20/17 21:59:00 CDT Notes: Change patch every 72 hours (Same as: Transderm-Scop) Start Date: 09/19/17 Stop Date: 09/20/17 Status: Completed Sodium Chloride 0.9% IV (ANES) 98 mL + dexmedetomidine (ANES) 200 microgram Route: IV, Drug form: INJ, Start date: 09/20/17 7:46:00 CDT, Stop date: 09/20/17 8:46:00 CDT Start Date: 09/20/17 Stop Date: 09/20/17 Status: Completed Vitamin D3 1200 IU, PO, Daily Start Date: 09/17/17 Status: Ordered Results BLOOD BANK RESULTS Most recent to 1 oldest [Reference Range]: ABO/Rh O POS *Unknown* (09/20/17 6:39 AM) Antibody Scrn Negative (09/20/17 6:39 AM) ELECTROLYTES Most recent to 1 2 oldest [Reference Range]: Sodium Lvl [135-145 138 mEq/L mEq/L] (09/21/17 4:17 AM) Potassium Lvl 4.1 mEq/L [3.5-5.1 mEq/L] (09/21/17 4:17 AM) Chloride Lvl [95-109 104 mEq/L mEq/L] (09/21/17 4:17 AM) CO2 [24-32 mEq/L] 25 mEq/L (09/21/17 4:17 AM) AGAP [10.0-20.0 13.1 mEq/L mEq/L] (09/21/17 4:17 AM) CHEM PANEL Most recent to 1 2 oldest [Reference Range]: Creatinine Lvl 0.48 mg/dL [0.50-1.40 mg/dL] *LOW* (09/21/17 4:17 AM) eGFR 115 mL/min/1.73m2 1 *NA* (09/21/17 4:17 AM) BUN [7-22 mg/dL] 9 mg/dL (09/21/17 4:17 AM) Glucose Lvl [70-99 125 mg/dL mg/dL] *HI* (09/21/17 4:17 AM) Calcium Lvl 8.6 mg/dL [8.5-10.5 mg/dL] (09/21/17 4:17 AM) Phosphorus [2.5-4.5 2.5 mg/dL mg/dL] (09/21/17 4:17 AM) Magnesium Lvl 2.3 mg/dL [1.8-2.4 mg/dL] (09/21/17 4:17 AM) 1Result Comment: The eGFR is calculated using the [...] from the National Kidney Disease Education Program ( NKDEP) which additionally recommends that when the eGFR is used in patients with extremes of body mass index for purposes of drug dosing, the eGFR should be mul tiplied by the estimated BMI. URINE AND STOOL Most recent to 1 2 oldest [Reference Range]: UA Turbidity [Clear] Clear Slight (09/20/17 6:19 AM) *ABN* (09/17/17 8:45 AM) UA Color [Yellow] Yellow Yellow *NA* *NA* (09/20/17 6:19 AM) (09/17/17 8:45 AM) UA pH [5.0-8.0] 5.5 5.5 (09/20/17 6:19 AM) (09/17/17 8:45 AM) UA Spec Grav 1.013 1.015 [<=1.030] (09/20/17 6:19 AM) (09/17/17 8:45 AM) UA Glucose [Negative Negative mg/dL Negative mg/dL mg/dL] *NA* *NA* (09/20/17:19 AM) (09/17/17 8:45 AM) UA Blood [Negative] Negative Negative (09/20/17:19 AM) (09/17/17 8:45 AM) UA Ketones [Negative 60 mg/dL 80 mg/dL mg/dL] *ABN* *ABN* (09/20/17:19 AM) (09/17/17 8:45 AM) UA Protein [Negative Negative mg/dL 10 mg/dL mg/dL] (09/20/17:19 AM) *ABN* (09/17/17 8:45 AM) UA Urobilinogen 2.0 mg/dL <=1.0 mg/dL [0.1-1.0 mg/dL] *HI* *NA* (09/20/17:19 AM) (09/17/17 8:45 AM) UA Bili [Negative] Negative Negative *NA* *NA* (09/20/17:19 AM) (09/17/17 8:45 AM) UA Leuk Est Negative Negative [Negative] (09/20/17:19 AM) (09/17/17 8:45 AM) UA Nitrite Negative Positive [Negative] (09/20/17 6:19 AM) *ABN* (09/17/17 8:45 AM) UA WBC [0-5 /HPF] 1 /HPF 4 /HPF (09/20/17:19 AM) (09/17/17 8:45 AM) UA RBC [0-2 /HPF] 1 /HPF (09/17/17 8:45 AM) UA Bacteria [None Occasional /HPF Many /HPF Seen /HPF] *NA* *ABN* (09/20/17:19 AM) (09/17/17 8:45 AM) UA Sq Epi [Few /LPF] Few /LPF Moderate /LPF *NA* *ABN* (09/20/17:19 AM) (09/17/17 8:45 AM) UA Hyal Cast [0-2 1 /LPF 3 /LPF /LPF] (09/20/17 6:19 AM) *HI* (09/17/17 8:45 AM) UA Renal Epi [<=0] RARE *NA* (09/17/17 8:45 AM) UA Mucus [None Seen Few /LPF Few /LPF /LPF] *NA* *NA* (09/20/17 6:19 AM) (09/17/17 8:45 AM) HEMATOLOGY Most recent to 1 2 oldest [Reference Range]: WBC [3.7-10.4 K/CMM] 10.7 K/CMM *HI* (09/21/17 4:17 AM) RBC [4.20-5.40 3.77 M/CMM M/CMM] *LOW* (09/21/17 4:17 AM) Hgb [12.0-16.0 g/dL] 11.4 g/dL *LOW* (09/21/17 4:17 AM) Hct [36.0-48.0 %] 33.3 % *LOW* (09/21/17 4:17 AM) MCV [80.0-98.0 fL] 88.4 fL (09/21/17 4:17 AM) MCH [27.0-31.0 pg] 30.3 pg (09/21/17 4:17 AM) MCHC [32.0-36.0 34.2 g/dL g/dL] (09/21/17 4:17 AM) RDW [11.5-14.5 %] 14.9 % *HI* (09/21/17 4:17 AM) MPV [7.4-10.4 fL] 9.9 fL (09/21/17 4:17 AM) Platelet [133-450 185 K/CMM K/CMM] (09/21/17 4:17 AM) Segs [45.0-75.0 %] 82.8 % *HI* (09/21/17 4:17 AM) Lymphocytes 10.6 % [20.0-40.0 %] *LOW* (09/21/17 4:17 AM) Monocytes [2.0-12.0 6.4 % %] (09/21/17 4:17 AM) Eosinophils [0.0-4.0 0.1 % %] (09/21/17 4:17 AM) Basophils [0.0-1.0 0.1 % %] (09/21/17 4:17 AM) Segs-Bands # 8.8 K/CMM [1.5-8.1 K/CMM] *HI* (09/21/17 4:17 AM) Lymphocytes # 1.1 K/CMM [1.0-5.5 K/CMM] (09/21/17 4:17 AM) Monocytes # [0.0-0.8 0.7 K/CMM K/CMM] (09/21/17 4:17 AM) PT [12.0-14.7 14.5 seconds 14.6 seconds seconds] (09/21/17 4:17 AM) (09/17/17 8:45 AM) INR [0.85-1.17] 1.13 1.14 (09/21/17 4:17 AM) (09/17/17 8:45 AM) PTT [22.9-35.8 30.7 seconds 33.0 seconds seconds] (09/21/17 4:17 AM) (09/17/17 8:45 AM) Immunizations No data available for this section Procedures Procedure Date Related Diagnosis Body Site Status Esophagogastroduodenoscopy 09/20/17 Completed Hernia repair1 09/20/17 Completed Laparoscopic sleeve gastrectomy 09/20/17 Comple bibi Appendectomy Completed section Completed Cholecystectomy Completed Hernia repair2 Completed ABIGAIL - Total abdominal hysterectomy Completed 1ventral hernia repair 2hiatal hernia repair Social History Social History Type Response Alcohol Never Smoking Status Never smoker; Exposure to T obacco Smoke None; Cigarette Smoking Last 365 Days No; Reg Smoking Cessation Counseli ng No entered on: 09/20/17 Assessment and Plan Extracted from: Title: surgery Author: Pierre Leary MD Alejandro e: 09/21/17 Impression and Plan Doing fine. Discharge home with f/u in 2 weeks.
--- OUTSIDE RECORDS SUMMARY | 2019-09-19 08:02 | XMS REPORT | Summary of Care ---
Author Author [facility] Organization [facility] Address Unknown Phone Unavailable Encounter [facility] [email or web address]_[email or web address](FIN) [id number] Date(s): 10/29/15 - 10/29/15 [facility] [address] [place] [address]- [phone] Discharge Disposition: Home Attending Physician: Physician, Non Associated MD Referring Physician: Dejuan Garland MD Vital Signs No data available for this section Problem List No data available for this section Allergies, Adverse Reactions, Alerts No data available for this section Medications No data available for this section Results No data available for this section Immunizations No data available for this section Procedures No data available for this section Social History No data available for this section Assessment and Plan No data available for this section
[2019-09-19 11:34] VITALS: BP 118/74
== END | disposition home or self-care (01) ==
LOC: OR 07:50
PROVIDERS: ATTEND Internal Medicine Gastroenterology
DX: K31.7 Polyp of stomach and duodenum (principal); K29.50 Unspecified chronic gastritis without bleeding; K44.9 Diaphragmatic hernia without obstruction or gangrene; K64.8 Other hemorrhoids; Z98.84 Bariatric surgery status; I10 Essential (primary) hypertension; Z01.810 Encounter for preprocedural cardiovascular examination; Z01.812 Encounter for preprocedural laboratory examination; Z11.59 Encounter for screening for other viral diseases; Z79.82 Long term (current) use of aspirin; Z79.899 Other long term (current) drug therapy; Z80.0 Family history of malignant neoplasm of digestive organs
CPT/HCPCS: 36415; 43239; 43251; 85025; 87635; 93005; J2001; J2250; J2704

== ENCOUNTER → 2019-11-28 | Day surgery (SDC) | payer OTHER ==
[~2019-11-28] MED LIST changes: +EPHEDRINE SULFATE INJ 50 MG/ML VIAL ONE; +GLYCOPYRROLATE INJ 0.2 MG/ML VIAL ONE; -LIDOCAINE HCL 2% LOCAL INJ 5 ML SDV VIAL INJ ONE; -MIDAZOLAM HCL 2 MG/2 ML VIAL ONE; +SUCRALFATE1 GM PO
[2019-11-28 11:03] VITALS: BP 129/61
== END | disposition home or self-care (01) ==
LOC: OR 07:45
PROVIDERS: ATTEND Internal Medicine Gastroenterology
DX: K31.7 Polyp of stomach and duodenum (principal); K29.50 Unspecified chronic gastritis without bleeding; K21.9 Gastro-esophageal reflux disease without esophagitis; K44.9 Diaphragmatic hernia without obstruction or gangrene; I25.10 Atherosclerotic heart disease of native coronary artery without angina pectoris; I10 Essential (primary) hypertension; R00.1 Bradycardia, unspecified; Z01.812 Encounter for preprocedural laboratory examination; Z11.59 Encounter for screening for other viral diseases; Z79.82 Long term (current) use of aspirin; Z80.0 Family history of malignant neoplasm of digestive organs
CPT/HCPCS: 43251; J2704; U0002; 43239